=== PATIENT | female | born 1990 | race African-American/Black ===

== ENCOUNTER 2018-10-31 15:31 | Emergency (ER) | payer OTHER ==
[~2018-10-31] VITALS: Ht 160 cm; Wt 60.8 kg
--- NOTE | 2018-10-31 15:34 | Emergency Room Report ---
History of Present Illness General Chief Complaint: Female Urogenital Problems Source: Patient, EMS Present Illness HPI 28-year-old female reporting a significant past medical history brought in by ambulance for painful urination since this morning. Patient denies any hematuria, fever, chills, nausea and vomiting. She complains of urinary frequency and urgency. Has not taken any medication. Patient has a slow in responding and appears to be under the influence of drugs. Denies drug use, smoking, alcohol use. Denies flank pain, abdominal pain, chest pain, palpitation, chest pain, no other associated symptoms complains of 2 out of 10 suprapubic pressure. Rates the dysuria 10 out of 10 without radiation. LMP was one month ago and does not know if she is . Denies recent sexual activity. Denies vaginal discharge, irritation, pruritus, ulcers. Allergies: Coded Allergies: No Known Allergies (Unverified , 10/31/18) Patient History Past Medical History: see triage record Past Surgical History: unable to obtain Pertinent Family History: unable to obtain Now: No Immunizations: UTD Reviewed Nursing Documentation: PMH: Agreed; PSxH: Agreed Nursing Documentation-PMH Past Medical History: No Stated History Review of Systems All Other Systems: negative except mentioned in HPI Physical Exam Vital Signs Date Time Temp Pulse Resp B/P (MAP) Pulse Ox O2 Delivery O2 Flow Rate FiO2 10/31/18 15:22 98.1 93 18 104/69 98 Room Air Sp02 EP Interpretation: reviewed, normal General Appearance: normal inspection, well appearing, non-toxic Head: normocephalic, atraumatic Eyes: bilateral eye normal inspection, bilateral eye PERRL ENT: normal ENT inspection, normal pharynx Neck: normal inspection, supple Respiratory: normal inspection, chest non-tender, no rhonchi, no wheezing Cardiovascular #1: normal inspection, no edema Gastrointestinal: normal inspection, non tender, soft Rectal: deferred Genitourinary: no CVA tenderness Musculoskeletal: normal inspection, back normal, normal range of motion Neurologic: normal inspection, alert, oriented x3 Psychiatric: judgement/insight normal, depressed affect - appears to be under the influence of drugs Skin: normal inspection, normal color, no rash, warm/dry Lymphatic: normal inspection, no adenopathy Medical Decision Making PA Attestation DIAGNOSIS and treatment plans were reviewed and discussed with supervising physician Dr. Gallardo Diagnostic Impression: Primary Impression: UTI (urinary tract infection) ER Course 28-year-old female reporting a significant past medical history brought in by ambulance for painful urination since this morning. Patient denies any hematuria, fever, chills, nausea and vomiting. She complains of urinary frequency and urgency. Has not taken any medication. Patient has a slow in responding and appears to be under the influence of drugs. Denies drug use, smoking, alcohol use. Denies flank pain, abdominal pain, chest pain, palpitation, chest pain, no other associated symptoms complains of 2 out of 10 suprapubic pressure. Rates the dysuria 10 out of 10 without radiation. LMP was one month ago and does not know if she is . Denies recent sexual activity. Denies vaginal discharge, irritation, pruritus, ulcers. Ddx considered but are not limited to UTI, pyelonephritis, Vital signs: are WNL, pt. is afebrile H&PE are most consistent with UTI ORDERS: UA, urine culture, urine test, Macrobid, Pyridium ED INTERVENTIONS: None required at this time. DISCHARGE: At this time pt. is stable for d/c to home. Will provide printed patient care instructions, and any necessary prescriptions. Care plan and follow up instructions have been discussed with the patient prior to discharge. pos leuk in urine, neg urine preg Last Vital Signs Date Time Temp Pulse Resp B/P (MAP) Pulse Ox O2 Delivery O2 Flow Rate FiO2 10/31/18 15:22 98.1 93 18 104/69 98 Room Air Disposition: HOME, SELF-CARE Condition: Stable Patient Instructions: Urinary Tract Infection Additional Instructions: take medication as directed, increase fluid intake, if fever, chills, nausea vomiting seek further attention Yadi Ortiz Oct 31, 2018 15:34
[2018-10-31 15:36] VITALS: BP 104/69
--- NOTE | 2018-10-31 15:39 | NUR ---
ED Nurse Note: Pt BIBA to ER c/o buring sensation upon urination 04/30 which has been 2 days. pt aao x 4 calm and cooperatvie. skin clean and intact. pt is ambulatory with steady gait.
[2018-10-31 15:49] LABS: APPEARANCE,URINE CLEAR; BILIRUBIN, URINE NEGATIVE (NEGATIVE); GLUCOSE, URINE (UA) NEGATIVE (NEGATIVE); KETONES,URINE 1+ (NEGATIVE); LEUKOCYTE ESTERASE ,URINE 3+ (NEGATIVE); NITRITE,URINE NEGATIVE (NEGATIVE); PH,URINE 6 (4.5-8.0); PROTEIN,URINE 1+ (NEGATIVE); UROBILINOGEN,URINE 1 MG/DL (0.0-1.0)
[2018-10-31 15:53] LABS: COLOR,URINE YELLOW
[2018-10-31] MEDS ORDERED: NITROFURANTOIN100 M2 ORAL (16:00)
[2018-10-31] MEDS ORDERED: PHENAZOPYRIDIN200 MG ORAL (16:00)
[2018-10-31 16:13] VITALS: BP 105/61
--- NOTE | 2018-10-31 16:14 | NUR ---
ED Nurse Note: Pt cleared DC by ERPA. Pt is A/Ox4, VSS, DC instruction and prescriptions given, pt verbalized understanding. ID wristband removed. All belongings given to pt. Pt ambulated out of ER with steady gait.
== END 2018-10-31 16:15 | disposition home or self-care (01) ==
LOC: EDBD 15:31 → EMR 16:00
DX: N39.0 Urinary tract infection, site not specified (principal)
CPT/HCPCS: 81001; 81025; 87086; 99283